=== PATIENT | female | born 2000 | race Hispanic/Latino ===

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

== ENCOUNTER 2018-04-14 12:41 | Observation (INO) | payer MEDICAID ==
[~2018-04-14] VITALS: Ht 167.6 cm; Wt 94.3 kg
[2018-04-14 13:34] LABS: APPEARANCE,URINE Clear (CLEAR); BILIRUBIN,URINE Negative (NEGATIVE); COLOR,URINE Yellow (YELLOW); GLUCOSE, URINE (UA) Negative (NEGATIVE); KETONES,URINE Negative (NEGATIVE); LEUKOCYTE ESTERASE ,URINE Trace (NEGATIVE); NITRATE,URINE Negative (NEGATIVE); OCCULT BLOOD,URINE Negative (NEGATIVE); PROTEIN,URINE Negative (NEGATIVE); UROBILINOGEN,URINE 0.2 mg/dL (0.2-1.0)
[2018-04-14 13:52] LABS: BACTERIA,URINE Rare /HPF (None Seen); RBC,URINE 0-1 /HPF (0-1); SQUAMOUS EPITHELIAL CELL,UR Rare /HPF (0-2); WBC,URINE 0-1 /HPF (0-1)
[2018-04-14] MEDS ORDERED: LACTATED RINGERS 1000ML 1,000 ML IV SCH (14:45)
[2018-04-14] MEDS ORDERED: CEFTRIAXONE SODIUM 1 GM IVP SCH (14:45)
[2018-04-14] MEDS ORDERED: CEFTRIAXONE SODIUM 1 GM ONE (15:25)
== END 2018-04-14 18:41 | disposition home or self-care (01) ==
LOC: EDH 12:41 → LDH 12:42
PROVIDERS: ADMIT Obstetrics & Gynecology; ATTEND Obstetrics & Gynecology
DX: O26.892 Other specified pregnancy related conditions, second trimester (principal); R10.30 Lower abdominal pain, unspecified; Z3A.24 24 weeks gestation of pregnancy
CPT/HCPCS: 76805; 81001; 96374; 99285; G0378 ×6; J0696; J7120; 96360; 96361

== ENCOUNTER 2018-06-03 14:05 | Observation (INO) | payer MEDICAID ==
[~2018-06-03] VITALS: Ht 167.6 cm; Wt 99.3 kg
[2018-06-03 14:43] LABS: APPEARANCE,URINE Cloudy (CLEAR); BILIRUBIN,URINE Negative (NEGATIVE); COLOR,URINE Yellow (YELLOW); GLUCOSE, URINE (UA) Negative (NEGATIVE); KETONES,URINE Negative (NEGATIVE); LEUKOCYTE ESTERASE ,URINE Moderate (NEGATIVE); NITRATE,URINE Negative (NEGATIVE); OCCULT BLOOD,URINE Negative (NEGATIVE); PH,URINE 7.5 (5.0-8.0); PROTEIN,URINE Negative (NEGATIVE); UROBILINOGEN,URINE 0.2 mg/dL (0.2-1.0)
[2018-06-03 14:52] LABS: BACTERIA,URINE Few /HPF (None Seen); RBC,URINE None Seen /HPF (0-1); WBC,URINE 0-1 /HPF (0-1)
[2018-06-03 14:53] LABS: MUCUS,URINE Few LPF (None Seen)
== END 2018-06-03 15:26 | disposition home or self-care (01) ==
LOC: EDH 14:05 → LDH 14:06
PROVIDERS: ADMIT Obstetrics & Gynecology; ATTEND Obstetrics & Gynecology
DX: O26.893 Other specified pregnancy related conditions, third trimester (principal); N89.8 Other specified noninflammatory disorders of vagina; R10.9 Unspecified abdominal pain; Z3A.32 32 weeks gestation of pregnancy
CPT/HCPCS: 81001; 99284; G0378